=== PATIENT | male | born 1950 | race African-American/Black ===

== ENCOUNTER → 2019-01-20 | Outpatient (CLI) | payer MEDICARE, OTHER ==
[2016-12-05 12:01] VITALS: BP 142/97
[~2019-01-20] MED LIST: ALBU2.5V8 INH; AZIT250T PO; BENZ100C PO; METH4TAB2 PO
--- NOTE | 2019-01-20 16:20 | RAD ---
Left knee, 3 views, 01/20/2019: HISTORY: Chronic left knee pain No fracture or dislocation is identified. There is only minimal narrowing of the knee joint. There is minimal posterior patellar spurring. No significant joint effusion is evident. Mild arterial calcifications are noted. IMPRESSION: No acute left knee abnormality is detected. Electronically signed by: Devonte Oliva MD (01/20/2019 4:17 PM) [facility]
== END | disposition home or self-care (01) ==
LOC: PMG 15:53
PROVIDERS: ATTEND Family Medicine
DX: M25.862 Other specified joint disorders, left knee (principal)
CPT/HCPCS: 73562

== ENCOUNTER → 2019-11-28 | Outpatient (CLI) | payer MEDICARE, OTHER ==
[2016-12-05 12:01] VITALS: BP 142/97
--- NOTE | 2019-11-28 11:57 | CARD ---
MR#: [id number] Date of Study: 11/28/2019 Ordering Physician: SIN BARNARD, Referring Physician: SIN BARNARD, Tech: Janelle Grant [facility] APPROVED REPORT EXAM: Two-dimensional and M-mode echocardiogram with Doppler and color Doppler. Other Information Quality : GoodHR: 55bpm Rhythm : Bradycardia INDICATION Hypertension/HCVD 2D DIMENSIONS Left Atrium(2D)2.5 (1.6-4.0cm)IVSd1.0 (0.7-1.1cm) Aortic Root(2D)3.8 (2.0-3.7cm)LVDd5.0 (3.9-5.9cm) LVOT Diameter2.3 (1.8-2.4cm)PWd1.0 (0.7-1.1cm) LVDs3.9 (2.5-4.0cm)FS (%) 22.9 % SV54.5 mlLVEF(%)45.7 (>50%) Aortic Valve AoV Peak Tr.159.2cm/sAoV VTI32.6cm AO Peak GR.10.1mmHgLVOT Peak Tr.76.1cm/s LVOT VTI 17.45cmAO Mean GR.6mmHg GIRISH (VMAX)1.95cy1OBK (VTI)2.21cm2 Mitral Valve MV E Ucsdkrux08.7cm/sMV DECEL NTAG102ev MV A Eudwjadc49.2cm/sE/A Ratio1.2 Pulmonary Valve PV Peak Urpsxnxx97.9cm/sPV Peak Grad.4mmHg Tricuspid Valve TR P. Xawanjkw086ac/sRAP UFNGCILR1boKy TR Peak Gr.68iqYaAJDV66jiIz LEFT VENTRICLE The left ventricle is normal size. There is normal left ventricular wall thickness. Left ventricle sy stolic function is normal. The Ejection Fraction is 55%. There is normal LV segmental wall motion. RIGHT VENTRICLE The right ventricle is normal size. There is normal right ventricular wall thickness. The right ventr icular systolic function is normal. ATRIA The left atrium size is normal. The right atrium size is normal. The interatrial septum is intact wit h no evidence for an atrial septal defect or patent foramen ovale as noted on 2-D or Doppler imaging. AORTIC VALVE The aortic valve is calcified but opens well. The aortic valve is trileaflet. Doppler and Color Flow revealed trace aortic regurgitation. There is no significant aortic valvular stenosis. MITRAL VALVE The mitral valve is normal in structure and function. There is no evidence of mitral valve prolapse. There is no mitral valve stenosis. Doppler and Color-flow revealed trace mitral regurgitation. TRICUSPID VALVE The tricuspid valve is normal in structure and function. Doppler and Color Flow revealed trace tricus pid regurgitation. The PA pressure was estimated at 23 mmHg. There is no tricuspid valve prolapse or vegetation. There is no tricuspid valve stenosis. PULMONIC VALVE The pulmonic valve is not well visualized. GREAT VESSELS The aortic root is mildly enlarged. The ascending aorta is normal in size. The IVC is normal in size and collapses >50% with inspiration. PERICARDIAL EFFUSION There is no evidence of significant pericardial effusion. Critical Notification Critical Value: No <Conclusion> Left ventricle systolic function is normal. The Ejection Fraction is 55%. There is normal LV segmental wall motion. Trace mitral regurgitation. Trace tricuspid regurgitation. The PA pressure was estimated at 23 mmHg. There is no evidence of significant pericardial effusion. Signed by : Alfredo Oneill, Electronically Approved : 11/28/2019 08:51:34
== END | disposition home or self-care (01) ==
LOC: ECHO 07:41
PROVIDERS: ATTEND Internal Medicine Cardiovascular Disease
DX: I35.8 Other nonrheumatic aortic valve disorders (principal); I10 Essential (primary) hypertension
CPT/HCPCS: 93306

== ENCOUNTER → 2019-12-01 | Outpatient (CLI) | payer MEDICARE, OTHER ==
[2016-12-05 12:01] VITALS: BP 142/97
--- NOTE | 2019-12-01 12:08 | RAD ---
MR#: [id number] Date of Study: 12/01/2019 Ordering Physician: SIN BARNARD, Referring Physician: AKILA STEVEN Tech: RT Frances Eaton) (N) APPROVED REPORT Test Type: Exercise Stress Nurse/Tech: RT Angelito (Gonzalo) (N) Test Indications: chest pain Cardiac History: none Medications: none Medical History: tabacco abuse Resting ECG: sinus rhythm Resting Heart Rate: 80 bpm Resting Blood Pressure: 136/93mmHg Pretest Chest Pain: None Nurse/Tech Notes Consent: The procedure was explained to the patient in lay terms. Informed consent was witnessed. Jairon eout was entered into [email or web address]. History and Stress Test performed by RT Angelito (Gonzalo) (N) POST EXERCISE Target HR: Yes Max HR: 146 bpm 96% of Maximum Predicted HR: 151 bpm Exercise duration: 7:32 min:sec, 3 Stage Exercise capacity: 10METs Max Blood Pressure: 168/75mmHg INTERPRETATION Stress EKG Conclusion: The resting EKG shows a sinus rhythm with mild nonspecific ST-T wave changes. The stress EKG shows no significant changes from baseline. No EKG evidence of stress-induced ischemia. Imaging Protocol IMAGE PROTOCOL: Rest Tc-99m/stress Tc-99m 1 day Rest: Stress: Viability: Radiopharm.Tc99m TkgexwmwyCx46z Sestamibi Dose10.8mCi 32mCi Duration 15min. 10min. Img Date 12/01/2019 12/01/2019 Inj-Img Gbic28xyh. 60min. Post-Injection Exercise: 1 minute Rest Admin Site:IV - Right AntecubitalAdministrator: RT Angelito (Gonzalo)(N) Stress Admin Site: IV - Right AntecubitalAdministrator: RT Frances Eaton)(N) STRESS DATA End Diast. Vol.118.0mlAv. Heart Rate87.0bpm End Syst. Vol.39.0mlCO Index BSA0.0L/min Myocardial Beuj708.0gEject. Adjviglt30.0% Stress Rates Pk. Fill Rate3.04EDV/secLVtime Pk. Fill 91.43msec Pk. Empty Rate4.37ESV/secLVtime Pk. Njgtg232.89msec /3 Pk. Fill1.98EDV/sec Stress Scores Regional WT1.00Summed WT7.00 Regional WM0.00Summed WM6.00 LV Perfusion The stress scans showed no significant defects. The rest scans showed no significant defects. Nuclear imaging shows no reversible ischemia or infarct. Wall Motion Left ventricular systolic function is normal with an ejection fraction of 64%. LV Perf. Quant 17 Seg. SSS2.00 17 Seg. SRS6.00 17 Seg. SDS0.00 Stress Defect Extent (% LAD)4.40Rest Defect Extent (% LAD)15.00Rev. Defect Extent (% LAD)0.00 Stress Defect Extent (% LCX) 0.00Rest Defect Extent (% LCX)0.00Rev. Defect Extent (% LCX)0.00 Stress Defect Extent (% RCA)0.00Rest Defect Extent (% RCA)0.00Rev. Defect Extent (% RCA)0.00 Stress Defect Extent (% ZEENAT)1.50Rest Defect Extent (% ZEENAT)8.50Rev. Defect Extent (% ZEENAT)0.00 Conclusion 1. Good exercise tolerance. 2. No EKG evidence of stress-induced ischemia. 3. Nuclear imaging shows no reversible ischemia or infarct. 4. Normal LV systolic function with an ejection fraction of 64%. 5. Low risk treadmill nuclear stress test. Signed by : Yakov Long MD Electronically Approved : 12/01/2019 12:07:48
--- NOTE | 2019-12-01 13:39 | RAD ---
MR#: [id number] Date of Study: 12/01/2019 Ordering Physician: SIN BEARDEN, Referring Physician: Danie STEVEN: Archana Cervantes RDMS RVT APPROVED REPORT Patient Location: OUT-PATIENT Indications tobacco abuse Risk Factors Gonzales scale images of the aorta are limited due to bowel gas. Aorta has atherosclerosis diffuse but no aneurysm. Duplex Results A/PTransverseLongitudinal Proximal Aorta 2.8cm2.3cm Mid Aorta 2.6cm2.2cm Distal Aorta 2.1cm2.1cm Rt. Common Iliac Artery.9cm.9cm Lt. Common Iliac Artery 1.3cm1.3cm Critical Notification Critical Value: No <Conclusion> No significant aortic aneurysm. Signed by : Sin Bearden, Electronically Approved : 12/01/2019 13:38:44
--- NOTE | 2019-12-01 14:05 | RAD ---
MR#: [id number] Date of Study: 12/01/2019 Ordering Physician: SIN BEARDEN, Referring Physician: SIN BEARDEN, Danie: Archana Cervantes RDMS RVT APPROVED REPORT Patient Location: OUT-PATIENT Laterality:Bilateral Indications Bruit Grayscale images of the bilateral common carotid, external and internal carotid vessels are grossly u nremarkable. There is mild diffuse intimal hyperplasia and diffuse plaque but no significant obstruct chelo disease is noted. Spectral waveforms and color Doppler are grossly within normal limits. Overall 0 to less than 50% ruthie nosis based on velocity criteria in the internal carotid arteries. Bilateral vertebral arteries are a ntegrade and within normal velocities. Doppler Spectral Velocity Analysis Right Left pCCA 89/15 cm/spCCA 94/19 cm/s mCCA 80/10 cm/smCCA 65/11 cm/s dCCA 73/16 cm/sdCCA 61/15 cm/s ECA 94/ cm/sECA 98/ cm/s pICA 90/19 cm/spICA 63/15 cm/s Edwin 118/24 cm/smICA 72/17 cm/s dICA 104/23 cm/sdICA 70/20 cm/s Vert. 55/ cm/sVert. 41/ cm/s ICA/CCA 1.33ICA/CCA 0.77 Critical Notification Critical Value: No <Conclusion> 1. No significant carotid occlusive disease bilaterally. Signed by : Sin Bearden, Electronically Approved : 12/01/2019 14:04:26
== END | disposition home or self-care (01) ==
LOC: NM 07:58
PROVIDERS: ATTEND Internal Medicine Cardiovascular Disease
DX: I70.0 Atherosclerosis of aorta (principal); R09.89 Other specified symptoms and signs involving the circulatory and respiratory systems; Z72.0 Tobacco use
CPT/HCPCS: 78452; 93017; 93880; 93978; A9500; 96376

== ENCOUNTER → 2021-09-17 | Outpatient (CLI) | payer MEDICARE, OTHER ==
[2016-12-05 12:01] VITALS: BP 142/97
--- NOTE | 2021-09-17 14:37 | RAD ---
EXAM: Chest, 2 views. HISTORY: Tobacco abuse. COMPARISON: None. FINDINGS: 2 views of the chest are obtained. There is no infiltrate, pleural effusion or pneumothorax . There is hyperinflation due to emphysema. The heart is normal in size. There are healed rib fractur es. IMPRESSION: No acute pulmonary finding. Electronically signed by: Brigitte Frye MD (09/17/2021 2:34 PM) [id number]
== END ==
LOC: RAD 14:15
PROVIDERS: ATTEND Family Medicine
DX: J98.11 Atelectasis (principal); J43.9 Emphysema, unspecified; Z72.0 Tobacco use
CPT/HCPCS: 71046

== ENCOUNTER 2022-03-14 11:36 | Emergency (ER) | payer MEDICARE, OTHER ==
[~2022-03-14] VITALS: Ht 185.4 cm; Wt 72.8 kg
[2022-03-14] MEDS ORDERED: IV NORMAL SALINE 1,000ML 1,000 ML IV ONE (12:15)
[2022-03-14] MEDS ORDERED: ONDANSETRON PF 4 MG/2 ML VIAL. IVP ONE (12:30)
[2022-03-14 12:32] LABS: BASO # 0.1 x10^3/uL (0.0-0.2); BASO % 1 % (0-3); EOS # 0.1 x10^3/uL (0.0-0.7); EOS % 1 % (0-3); HEMATOCRIT 45.6 % (39.0-53.0); HEMOGLOBIN 15.5 g/dL (13.0-17.5); LYMPH # 3.2 x10^3/uL (1.0-4.8); LYMPH % 31 % (24-48); MEAN CORPUSCULAR HEMOGLOBIN 33 pg (25-35); MEAN CORPUSCULAR HGB CONC 34 g/dL (31-37); MEAN CORPUSCULAR VOLUME 97 fL (79-100); MONO # 1.1 x10^3/uL (0.0-1.1); MONO % 11 % (0-9); NEUT # 5.9 x10^3uL (1.8-7.7); NEUT % 57 % (31-73); PLATELET COUNT 245 x10^3/uL (140-400); RED BLOOD COUNT 4.72 x10^6/uL (4.30-5.70); RED CELL DISTRIBUTION WIDTH 12.9 % (11.5-14.5); WHITE BLOOD COUNT 10.4 x10^3/uL (4.0-11.0)
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
[2022-03-14 12:43] LABS: CALCIUM 9.3 mg/dL (8.5-10.1); CREATININE 0.9 mg/dL (0.7-1.3); GFR 100.7; POTASSIUM 4.7 mmol/L (3.5-5.1)
[2022-03-14 12:48] LABS: ALBUMIN 3.4 g/dL (3.4-5.0); TOTAL BILIRUBIN 0.3 mg/dL (0.2-1.0); TOTAL PROTEIN 6.8 g/dL (6.4-8.2)
--- NOTE | 2022-03-14 13:12 | RAD ---
CT abdomen and pelvis without contrast PQRS statement: CT scans at this facility use dose reduction including either automated exposure cont rol, iterative reconstructions, and /or weight based radiation dosing via mA and kV modification when appropriate to reduce radiation dose to as low as reasonably achievable. HISTORY: Abdominal pain. Diarrhea. Abdomen findings: Mild chronic L4 compression deformity. Lumbar disc disease. Liver, gallbladder, artis creas, spleen, adrenal glands unremarkable. Subcentimeter hyperdensity right renal upper pole density 80 units, consistent with a hemorrhagic cyst. 2.5 cm left renal cyst density 2 units. Mild distended extrarenal pelves of the kidneys. No ureteral calculi. There is mild luminal collapse and wall thick ening of the cecum and ascending colon to the hepatic flexure. Appendix is normal. No bowel obstructi on. Aortoiliac artery calcified plaque and mild aneurysm of the mid abdominal aorta diameter 3.1 cm. No abdominal fluid. Pelvis findings: No bladder calculi. Bladder, prostate, rectum and bones are unremarkable. No pelvic fluid. IMPRESSION: 1. Right-sided colitis with wall thickening of the cecum, ascending colon and hepatic flexure. No bow el obstruction. 2. Appendix is normal. 3. Abdominal aortic aneurysm with a diameter 3.1 cm. For AAA size 3.0-3.9 cm: follow up ultrasound every 3 years For AAA size 4.0-4.9 cm: follow up every 12 months For AAA size 5.0-5.4 cm: follow up every 6 months For AAA size > 5.5 cm: recommend elective repair. Consider referral to a vascular surgeon at the time of initial diagnosis of an aortic aneurysm. Revised 2020 (Resolution 7)* ACR?AIUM?SRU PRACTICE PARAMETER FOR THE PERFORMANCE OF DIAGNOSTIC AND SCREENING ULTRASOUND OF THE ABDOMINAL AORTA IN ADULTS The Society for Vascular Surgery practice guidelines on the care of patients with an abdominal aortic aneurysm, October 2017 Electronically signed by: Moe Montoya MD (03/14/2022 1:10 PM) [facility]
[2022-03-14] MEDS ORDERED: AMOX1TAB61 PO (13:33)
[2022-03-14] MEDS ORDERED: AMIODARONE 150 MG in IV DEXTROSE 5% 100 ML IV ONE (13:45)
[2022-03-14] MEDS ORDERED: PIPERACILLIN/TAZOBACTAM 3.375 GM in IV NORMAL SALINE 50ML 50 ML IV ONE (13:45)
[2022-03-14] MEDS ORDERED: IV NORMAL SALINE 50ML 50 ML ONE (13:50)
[2022-03-14] MEDS ORDERED: PIPERACILLIN/TAZOBACTAM 3.375 GM VIAL IV ONE (13:50)
[2022-03-14 13:54] VITALS: BP 132/63
== END 2022-03-14 14:07 | disposition home or self-care (01) ==
LOC: ER 11:36
DX: K85.90 Acute pancreatitis without necrosis or infection, unspecified (principal); K52.9 Noninfective gastroenteritis and colitis, unspecified
CPT/HCPCS: 36415; 74176; 80053; 83690; 85025; 96361; 96374; 96375; 99284; J2405; J2543; J7030